=== PATIENT | female | born 1995 | race Caucasian/White ===

== ENCOUNTER 2016-08-31 14:52 | Emergency (ER) | payer BC ==
[~2016-08-31] VITALS: Ht 152.4 cm; Wt 54.5 kg
[~2016-08-31 14:52] MED LIST: DESYREL 50MG50 MG PO; ENSKYCE 0.15 MG1 TAB; PERCOCET 325 MG1 TA2 PO; PROZAC40 MG PO; ULTRAM 50MG TAB50 MG PO; VISTARIL 2525 MG/CAP PO; ZOFRAN8 MG PO
[2016-08-31 14:53] VITALS: BP 127/87; TEMP 97.9
[2016-08-31] MEDS ORDERED: XANAX .25M0.25 MG/TA PO (15:14)
[2016-08-31] MEDS ORDERED: ULTRACET TABL1 UDTAB PO (15:15)
[2016-08-31] MEDS ORDERED: AMOXICILLIN 25250 MG PO (15:15)
[2016-08-31 15:47] LABS: BASO # 0.1 (0.0-0.2); BASO % 0.5 % (0.0-2.0); EOS % 10.6 % (0-4.0); GRAN # 4.5 (1.4-6.5); GRAN % 46.4 % (42.2-75.2); HEMATOCRIT 43.6 % (35.0-45.0); HEMOGLOBIN 14.9 g/dl (12.0-15.0); LYMPH # 3.4 (1.2-3.4); LYMPH % 35.3 % (20.0-51.0); MEAN CELL VOLUME 86 fl (80.0-95.0); MEAN CORPUSCULAR HEMOGLOBIN 29 pg (26.0-32.0); MEAN CORPUSCULAR HGB CONC 34 g/dl (33.0-37.0); MEAN PLATELET VOLUME 9.3 fl (7.4-10.4); MONO # 0.7 (0.1-0.6); PLATELET COUNT 344 K/mm3 (130-400); REDCELL DISTRIBUTION WIDTH-CV 11.2 % (11.5-14.5); WHITE BLOOD COUNT 9.7 K/mm3 (4.8-10.8)
[2016-08-31 15:51] LABS: ADJUSTED CALCIUM 8.9 mg/dL (8.4-10.2); ALANINE AMINOTRANSFERASE 24 U/L (9-52); ALBUMIN 4.7 gm/dL (3.5-5.0); ALKALINE PHOSPHATASE 58 U/L (50-136); ANION GAP 14 mmol/L (7-16); BILIRUBIN,TOTAL 0.6 mg/dL (0.0-1.0); BLOOD UREA NITROGEN 8 mg/dL (7-17); CALCIUM 9.5 mg/dL (8.4-10.2); CARBON DIOXIDE 27 mmol/L (22-30); CHLORIDE 98 mmol/L (98-107); CREATININE, serum 0.68 mg/dL (0.52-1.25); GLUCOSE 85 mg/dL (74-106); POTASSIUM 3.6 mmol/L (3.4-5.0); SODIUM 139 mmol/L (137-145)
[2016-08-31 15:55] LABS: C-REACTIVE PROTEIN < 0.5 mg/dL (0.0-0.9)
[2016-08-31 15:57] LABS: PH 7 (5-8); URINE APPEARANCE Clear; URINE BACTERIA None Seen /hpf; URINE BILIRUBIN Negative (NEGATIVE); URINE BLOOD Negative (NEGATIVE); URINE COLOR Yellow; URINE GLUCOSE Negative (NEGATIVE); URINE KETONE Negative (NEGATIVE); URINE UROBILINOGEN Negative (NEGATIVE)
[2016-08-31 16:46] VITALS: PULSE 93
== END 2016-08-31 16:47 | disposition home or self-care (01) ==
LOC: COL.ER 14:52
PROVIDERS: Emergency Medicine
DX: B27.90 Infectious mononucleosis, unspecified without complication (principal); R51 Headache; F41.9 Anxiety disorder, unspecified; F32.9 Major depressive disorder, single episode, unspecified
CPT/HCPCS: J2405; J7030

== ENCOUNTER 2016-09-11 07:39 | Observation (INO) | payer BC ==
[~2016-09-11] VITALS: Ht 152.4 cm; Wt 58.4 kg
[~2016-09-11 07:39] MED LIST changes: +AMOXICILLIN 25250 MG PO; +ULTRACET TABL1 UDTAB PO; +XANAX .25M0.25 MG/TA PO
[2016-09-11 08:30] LABS: BASO # 0.1 (0.0-0.2); BASO % 0.5 % (0.0-2.0); EOS # 0.9 (0.0-0.7); EOS % 8.7 % (0-4.0); GRAN # 7.1 (1.4-6.5); GRAN % 72.4 % (42.2-75.2); HEMATOCRIT 45.7 % (35.0-45.0); HEMOGLOBIN 15.7 g/dl (12.0-15.0); LYMPH % 10.1 % (20.0-51.0); MEAN CELL VOLUME 86 fl (80.0-95.0); MEAN CORPUSCULAR HEMOGLOBIN 29 pg (26.0-32.0); MEAN CORPUSCULAR HGB CONC 34 g/dl (33.0-37.0); MEAN PLATELET VOLUME 9.3 fl (7.4-10.4); MONO # 0.8 (0.1-0.6); PLATELET COUNT 325 K/mm3 (130-400); RED BLOOD COUNT 5.34 M/mm3 (4.10-5.30); REDCELL DISTRIBUTION WIDTH-CV 11.8 % (11.5-14.5); WHITE BLOOD COUNT 9.8 K/mm3 (4.8-10.8)
[2016-09-11 08:38] LABS: ADJUSTED CALCIUM 9.1 mg/dL (8.4-10.2); C-REACTIVE PROTEIN 1.9 mg/dL (0.0-0.9); CALCIUM 9.9 mg/dL (8.4-10.2); CREATININE, serum 0.7 mg/dL (0.52-1.25); POTASSIUM 3.6 mmol/L (3.4-5.0); TOTAL PROTEIN 8.5 gm/dL (6.4-8.2)
[2016-09-11 15:10] VITALS: BP 106/68; PULSE 123; TEMP 97.4
[2016-09-11 15:12] VITALS: BP 106/68; PULSE 123; TEMP 97.4
[2016-09-11 20:56] VITALS: BP 133/76; PULSE 130; TEMP 98.2
[2016-09-12 00:43] VITALS: BP 121/72; PULSE 120; TEMP 98
[2016-09-12 05:04] VITALS: BP 139/89; PULSE 142; TEMP 98.8
[2016-09-12 07:36] VITALS: BP 132/90; PULSE 137; TEMP 98
[2016-09-12] MEDS ORDERED: FLONASE NASAL S16 GM NS (10:32)
[2016-09-12] MEDS ORDERED: ZITHROMAX 250M250 MG PO (10:32)
[2016-09-12] MEDS ORDERED: SINGULAIR 110 MG/TAB PO ×2 (10:32→14:46)
[2016-09-12 11:08] VITALS: BP 107/61; PULSE 128; TEMP 98.4
[2016-09-12] MEDS ORDERED: RT ADVAIR 128 DISKUS IH (14:46)
[2016-09-12] MEDS ORDERED: PROAIR HFA0.09 MG/AC IH (14:46)
[2016-09-12] MEDS ORDERED: MEDROL 4MG DOSPA4 MG PO (14:46)
== END 2016-09-12 16:21 | disposition home or self-care (01) ==
LOC: COL.ER 07:39 → MEDICAL 11:12
PROVIDERS: Emergency Medicine
DX: J45.901 Unspecified asthma with (acute) exacerbation (principal); E28.2 Polycystic ovarian syndrome; N80.9 Endometriosis, unspecified; L30.9 Dermatitis, unspecified
CPT/HCPCS: G0378; J2060; J2270; J2405; J2930; J7030; J7512

== ENCOUNTER → 2017-04-19 | Outpatient (CLI) | payer BC ==
[~2017-04-19] MED LIST changes: +FLONASE NASAL S16 GM NS; +MEDROL 4MG DOSPA4 MG PO; +PROAIR HFA0.09 MG/AC IH; +RT ADVAIR 128 DISKUS IH; +SINGULAIR 110 MG/TAB PO; +ZITHROMAX 250M250 MG PO
== END ==
LOC: BHSO 12:55
DX: F31.73 Bipolar disorder, in partial remission, most recent episode manic (principal)

== ENCOUNTER 2017-09-05 12:14 | Emergency (ER) | payer BC ==
[~2017-09-05] VITALS: Ht 152.4 cm; Wt 50.5 kg
[2017-09-05 12:20] VITALS: TEMP 98.1
[2017-09-05 14:06] LABS: CALCIUM 9.6 mg/dL (8.4-10.2); CREATININE, serum 0.69 mg/dL (0.52-1.25); POTASSIUM 3.6 mmol/L (3.4-5.0)
[2017-09-05 14:12] LABS: BASO % 0.5 % (0.0-2.0); EOS # 0.6 (0.0-0.7); EOS % 7.2 % (0-4.0); GRAN # 5.2 (1.4-6.5); GRAN % 59.4 % (42.2-75.2); HEMATOCRIT 45.5 % (35.0-45.0); HEMOGLOBIN 15.3 g/dl (12.0-15.0); LYMPH # 2.4 (1.2-3.4); MEAN CELL VOLUME 87 fl (80.0-95.0); MEAN CORPUSCULAR HEMOGLOBIN 29 pg (26.0-32.0); MEAN CORPUSCULAR HGB CONC 34 g/dl (33.0-37.0); MEAN PLATELET VOLUME 9.2 fl (7.4-10.4); MONO # 0.5 (0.1-0.6); MONO % 5.6 % (1.7-9.3); PLATELET COUNT 305 K/mm3 (130-400); RED BLOOD COUNT 5.25 M/mm3 (4.10-5.30); REDCELL DISTRIBUTION WIDTH-CV 12.9 % (11.5-14.5)
[2017-09-05] MEDS ORDERED: CARAFATE S1 GM/10 ML PO (15:15)
[2017-09-05 16:01] VITALS: BP 110/80; PULSE 110
[2017-09-05] MEDS ORDERED: KLONOPIN 0.5MG0.5 MG PO (16:07)
[2017-09-05] MEDS ORDERED: LAMICTAL 100MG100 MG PO (16:08)
[2017-09-05] MEDS ORDERED: SEROQUEL XR300 MG PO (16:08)
== END 2017-09-05 16:01 | disposition home or self-care (01) ==
LOC: COL.ER 12:14
PROVIDERS: Emergency Medicine
DX: T18.128A Food in esophagus causing other injury, initial encounter (principal); Z79.52 Long term (current) use of systemic steroids
CPT/HCPCS: J1100; J1200; J1610; J2060; J2405; J2930; J7030